=== PATIENT | male | born 1950 | race Caucasian/White ===

== ENCOUNTER → 2017-11-20 | Day surgery (SDC) | payer MEDICARE, BC ==
[~2017-11-20] MED LIST: CARVEDILOL12.5 MG PO; CIALIS10 MG PO; CLONIDINE HCL0.1 MG PO; ECOTRIN81 MG PO; FLOMAX0.4 MG PO; FUROSEMIDE40 MG PO; LOSARTAN POTAS100 MG PO; MIDAZOLAM HCL 2 MG/2 ML VIAL ONE; NIFEDICAL PO; OXYBUTYNIN CHLOR5 M1 PO; PEPCID20 MG PO; POTASSIUM CHLO20 ME1 PO; PROPOFOL IV EMULSION 10 MG/ML 20 ML VIAL ONE; XARELTO20 MG PO; ZOLPIDEM TARTRA10 MG PO
--- NOTE | 2017-11-20 08:28 | Operative Report ---
DATE OF PROCEDURE: November 20, 2017 PROCEDURE: Colonoscopy. INDICATIONS: The patient is here for colon cancer screening. DESCRIPTION OF PROCEDURE: After informed written consent and premedication with monitored anesthesia care, the standard adult video Olympus colonoscope was introduced into the rectum and all the way into the terminal ileum. The terminal ileum, cecum, and ascending colon appeared to be normal. At the hepatic flexure, there was a 7-mm sessile polyp, which was removed using a cold snare. Since the patient was on blood thinner Xarelto, it was decided to go ahead and put a 16-mm clip. The descending and sigmoid showed scattered diverticulosis. Small internal hemorrhoids were noted on retroflexion. IMPRESSION 1. Hemorrhoids. 2. Diverticulosis. 3. Colon polyp. RECOMMENDATIONS: Will check the pathology. According to this, repeat colonoscopy in 3 to 5 years. Further recommendations will be based on the patient's clinical course. Job#: [id number]
[2017-11-20 08:30] VITALS: BP 117/77
== END | disposition home or self-care (01) ==
LOC: OR 06:12
PROVIDERS: ATTEND Internal Medicine Gastroenterology
DX: Z12.11 Encounter for screening for malignant neoplasm of colon (principal); K63.5 Polyp of colon; K57.30 Diverticulosis of large intestine without perforation or abscess without bleeding; K64.8 Other hemorrhoids; K21.9 Gastro-esophageal reflux disease without esophagitis; Z71.3 Dietary counseling and surveillance; E66.9 Obesity, unspecified; D68.9 Coagulation defect, unspecified; I48.91 Unspecified atrial fibrillation; I25.810 Atherosclerosis of coronary artery bypass graft(s) without angina pectoris; I45.10 Unspecified right bundle-branch block; I10 Essential (primary) hypertension; G47.33 Obstructive sleep apnea (adult) (pediatric); Z88.8 Allergy status to other drugs, medicaments and biological substances; Z79.02 Long term (current) use of antithrombotics/antiplatelets; Z79.82 Long term (current) use of aspirin; Z68.35 Body mass index [BMI] 35.0-35.9, adult; Z95.810 Presence of automatic (implantable) cardiac defibrillator; Z95.5 Presence of coronary angioplasty implant and graft; Z95.1 Presence of aortocoronary bypass graft; Z96.651 Presence of right artificial knee joint
CPT/HCPCS: 45385; 88305; J2250